=== PATIENT | female | born 1975 | race African-American/Black ===

== ENCOUNTER 2017-05-31 02:51 | Emergency (ER) | payer MEDICAID ==
[~2017-05-31] VITALS: Ht 170.2 cm; Wt 68.2 kg
[2017-05-31 02:56] VITALS: BP 140/84
== END 2017-05-31 03:49 | disposition home or self-care (01) ==
LOC: EMS 02:53
DX: G56.03 Carpal tunnel syndrome, bilateral upper limbs (principal); F17.210 Nicotine dependence, cigarettes, uncomplicated; Z88.0 Allergy status to penicillin
CPT/HCPCS: 99283

== ENCOUNTER 2017-09-18 22:25 | Emergency (ER) | payer MEDICAID, OTHER ==
[~2017-09-18] VITALS: Ht 167.6 cm; Wt 80.5 kg
[2017-09-18 23:02] LABS: APPEARANCE,URINE TURBID (CLEAR); BILIRUBIN,URINE NEGATIVE (NEGATIVE); GLUCOSE, URINE (UA) NEGATIVE (NEGATIVE); KETONES,URINE NEGATIVE (NEGATIVE); LEUKOCYTE ESTERASE ,URINE LARGE (NEGATIVE); NITRATE,URINE POSITIVE (NEGATIVE); OCCULT BLOOD,URINE LARGE (NEGATIVE); PROTEIN,URINE SEE CONFIRM (NEGATIVE); UROBILINOGEN,URINE 0.2 mg/dL (<=1.0)
[2017-09-18 23:12] LABS: SULFOSALICYLIC ACID,URINE 2+ (Negative); WBC,URINE >100 /HPF (0-5)
[2017-09-18 23:13] LABS: BACTERIA,URINE Many /HPF (None Seen); SQUAMOUS EPITHELIAL CELL,UR Moderate /LPF (None Seen)
[2017-09-18 23:31] VITALS: BP 121/84
[2017-09-18] MEDS ORDERED: PHENAZOPYRIDINE HCL 100 MG TABLET PO ONE (23:45)
[2017-09-18] MEDS ORDERED: CIPROFLOXACIN HCL 250 MG TABLET PO ONE (23:45)
== END 2017-09-19 00:01 | disposition home or self-care (01) ==
LOC: EMS 22:26
DX: N39.0 Urinary tract infection, site not specified (principal); F17.210 Nicotine dependence, cigarettes, uncomplicated
CPT/HCPCS: 87086; 99284

== ENCOUNTER 2019-09-04 12:02 | Emergency (ER) | payer MEDICAID, OTHER ==
[~2019-09-04] VITALS: Ht 167.6 cm; Wt 85.9 kg
[2019-09-04] MEDS ORDERED: LIDOCAINE 5% TRANSDERMAL PATCH TD ONE (13:15)
[2019-09-04] MEDS ORDERED: METHOCARBAMOL 500 MG TABLET PO ONE (13:15)
[2019-09-04] MEDS: KETOROLAC TROMETHAMINE 30 MG/ML VIAL IM ONE ×2 (13:46→13:56)
[2019-09-04 13:57] VITALS: BP 127/68
[2019-09-04] MEDS ORDERED: KETOROLAC TROMETHAMINE 10 MG TABLET PO ONE (14:00)
== END 2019-09-04 14:33 | disposition home or self-care (01) ==
LOC: EMS 12:04
DX: G89.29 Other chronic pain (principal); M54.5 Low back pain; R03.0 Elevated blood-pressure reading, without diagnosis of hypertension; F17.210 Nicotine dependence, cigarettes, uncomplicated; Z88.0 Allergy status to penicillin
CPT/HCPCS: 72100; 72220; J1885

== ENCOUNTER 2021-12-22 15:15 | Emergency (ER) | payer MEDICAID | END 2021-12-22 17:57 | disposition left against medical advice (07) | LOC: EMS 15:21 | DX: Z53.21 Procedure and treatment not carried out due to patient leaving prior to being seen by health care provider (principal) ==

== ENCOUNTER 2022-03-08 03:28 | Inpatient (IN) | payer MEDICAID ==
[~2022-03-08] VITALS: Ht 170.2 cm; Wt 80.5 kg
[2022-03-08] MEDS ORDERED: ACETAMINOPHEN 500 MG TABLET PO ONE (03:45)
[2022-03-08] MEDS ORDERED: ONDANSETRON HCL 4 MG/2 ML VIAL IVP ONE (03:45)
[2022-03-08] MEDS ORDERED: SODIUM CHLORIDE 0.9% 1,000 ML IV ONE (03:45)
[2022-03-08] MEDS ORDERED: KETOROLAC TROMETHAMINE 30 MG/ML VIAL IVP ONE (03:45)
[2022-03-08] MEDS ORDERED: FAMOTIDINE 10 MG/ML 2 ML VIAL IVP ONE (03:45)
[2022-03-08 04:07] LABS: BASOPHILS % (AUTO) 0.2 % (0.0-2.0); EOSINOPHILS % (AUTO) 0.7 % (1.0-6.0); HEMATOCRIT 38.7 % (36-46); HEMOGLOBIN 12.5 g/dL (12.0-16.0); LYMPHOCYTES # (AUTO) 1.2 K/uL (1.0-4.8); LYMPHOCYTES % (AUTO) 14.8 % (22.0-44.0); MEAN CORPUSCULAR HEMOGLOBIN 25.5 pg (26.0-34.0); MEAN CORPUSCULAR HGB CONC 32.3 G/dL (31.0-37.0); MEAN CORPUSCULAR VOLUME 79 fL (80-100); MONOCYTES # (AUTO) 0.4 K/uL (0.1-1.0); NEUTROPHILS # (AUTO) 6.5 K/uL (1.8-7.7); NEUTROPHILS % (AUTO) 79.3 % (40.0-70.0); PLATELET COUNT (AUTO) 289 K/uL (150-450); RED CELL DISTRIBUTION WIDTH 14.4 % (11.5-14.5)
[2022-03-08 04:16] LABS: ANION GAP 9 mmol/L (8-16); CARBON DIOXIDE 28 mmol/L (22-29); CHLORIDE 103 mmol/L (98-107); CREATININE 0.89 mg/dL (0.60-1.30); GLUCOSE,RANDOM 162 mg/dL (70-110); POTASSIUM 3.9 mmol/L (3.5-5.1); SODIUM SERUM 140 mmol/L (136-145); UREA NITROGEN, BLOOD 11 mg/dL (7-18)
[2022-03-08 04:19] LABS: GLOMERULAR FILTR. RATE CALC > 60 mL/min (>60)
[2022-03-08 04:22] LABS: ALANINE AMINOTRANSFERASE 28 U/L (12-78); ALBUMIN 3.9 g/dL (3.4-5.0); ALKALINE PHOSPHATASE 66 U/L (46-116); ASPARTATE AMINOTRANSFERASE 17 U/L (15-37); BILIRUBIN,TOTAL 0.3 mg/dL (0.1-1.0); LIPASE 76 U/L (73-393); TOTAL PROTEIN, SERUM 7.9 g/dL (6.4-8.2)
[2022-03-08] MEDS ORDERED: IOHEXOL 350 MG/ML 100 ML VIAL ONE (04:44)
[2022-03-08] MEDS ORDERED: SODIUM CHLORIDE 0.9% 100 ML ONE (04:44)
[2022-03-08] MEDS ORDERED: ONDA-104 PO (05:49)
[2022-03-08 05:57] LABS: APPEARANCE,URINE HAZY (CLEAR); BILIRUBIN,URINE NEGATIVE (NEGATIVE); GLUCOSE, URINE (UA) NEGATIVE (NEGATIVE); KETONES,URINE NEGATIVE (NEGATIVE); LEUKOCYTE ESTERASE ,URINE TRACE (NEGATIVE); NITRATE,URINE NEGATIVE (NEGATIVE); OCCULT BLOOD,URINE NEGATIVE (NEGATIVE); PROTEIN,URINE TRACE mg/dL (NEGATIVE); UROBILINOGEN,URINE <=1.0 mg/dL (<=1.0)
[2022-03-08 06:05] LABS: RBC,URINE None Seen /HPF (0-2)
[2022-03-08 06:06] LABS: AMORPHOUS SEDIMENT,UR Many /LPF (None Seen); BACTERIA,URINE None Seen /HPF (None Seen); SQUAMOUS EPITHELIAL CELL,UR None Seen /LPF (None Seen); WBC,URINE 0-2 /HPF (0-5)
[2022-03-08] MEDS: SODIUM CHLORIDE 0.9% 1,000 ML IV SCH ×2 (06:13→08:27)
[2022-03-08 07:53] LABS: COVID AG,FIA SOURCE NASAL SWAB
[2022-03-08] MEDS ORDERED: ONDANSETRON HCL 4 MG/2 ML VIAL IVP PRN (08:15)
[2022-03-08] MEDS ORDERED: ACETAMINOPHEN 325 MG TABLET PO PRN (08:15)
[2022-03-08] MEDS: PANTOPRAZOLE SODIUM 40 MG/VIAL IVP SCH (08:27)
[2022-03-08] MEDS ORDERED: MAGNESIUM HYDROXIDE SUSPENSION 30 ML UDCUP PO ONE (11:15)
[2022-03-08] MEDS: HEPARIN SODIUM,PORCINE 5,000 UNITS/ML VIAL SQ SCH (15:07)
[2022-03-08 16:05] LABS: AMPHET/METH SCREEN,URINE POSITIVE (NEGATIVE); BARBITURATE SCREEN, URINE NEGATIVE (NEGATIVE); BENZODIAZEPINES SCREEN,URINE NEGATIVE (NEGATIVE); CANNABINOID SCREEN,URINE NEGATIVE (NEGATIVE); COCAINE SCREEN,URINE NEGATIVE (NEGATIVE); METHADONE SCREEN, URINE NEGATIVE (NEGATIVE); OPIATE SCREEN,URINE NEGATIVE (NEGATIVE)
[2022-03-08 16:06] LABS: PHENCYCLIDINE SCREEN,URINE NEGATIVE (NEGATIVE)
[2022-03-08 17:30] VITALS: BP 103/77
[2022-03-08 21:05] VITALS: BP 100/51
[2022-03-09 04:25] VITALS: BP 102/70
[2022-03-09] MEDS: HEPARIN SODIUM,PORCINE 5,000 UNITS/ML VIAL SQ SCH ×2 (08:00)
[2022-03-09] MEDS: PANTOPRAZOLE SODIUM 40 MG/VIAL IVP SCH (09:23)
[2022-03-09 10:13] VITALS: BP 110/68
== END 2022-03-09 15:00 | disposition home or self-care (01) | DRG 247 ==
LOC: EMS 03:30 → 6S 14:25 → UNDOADMIN 15:32
PROVIDERS: ADMIT Internal Medicine; ATTEND Internal Medicine
DX: K56.600 Partial intestinal obstruction, unspecified as to cause (principal); F15.90 Other stimulant use, unspecified, uncomplicated; F17.210 Nicotine dependence, cigarettes, uncomplicated; Z20.822 Contact with and (suspected) exposure to COVID-19; Z88.0 Allergy status to penicillin; Z82.49 Family history of ischemic heart disease and other diseases of the circulatory system; Z98.51 Tubal ligation status; Z79.899 Other long term (current) drug therapy; Z71.51 Drug abuse counseling and surveillance of drug abuser
CPT/HCPCS: 74019; 74177; 80053; 81001; 83690; 84484; 85025; 93005; 99285; C9113; G0378; J1644; J1885; J2405; J3490; J7030; J7050; Q9967

== ENCOUNTER 2022-08-08 05:34 | Emergency (ER) | payer MEDICAID, OTHER ==
[~2022-08-08] VITALS: Ht 170.2 cm; Wt 77.3 kg
[~2022-08-08 05:34] MED LIST: ONDA-104 PO
[2022-08-08] MEDS ORDERED: ACET-2080 PO (06:29)
[2022-08-08] MEDS ORDERED: IBUP-1554 PO (06:29)
[2022-08-08] MEDS ORDERED: ACETAMINOPHEN/CODEINE 300-30 MG TABLET PO ONE (06:45)
[2022-08-08] MEDS ORDERED: IBUPROFEN 600 MG TABLET PO ONE (06:45)
[2022-08-08 06:47] VITALS: BP 114/78
== END 2022-08-08 06:54 | disposition home or self-care (01) ==
LOC: EMS 05:35
DX: S93.601A Unspecified sprain of right foot, initial encounter (principal); F17.210 Nicotine dependence, cigarettes, uncomplicated; F15.90 Other stimulant use, unspecified, uncomplicated; Z98.51 Tubal ligation status; W18.40XA Slipping, tripping and stumbling without falling, unspecified, initial encounter; Y93.89 Activity, other specified; Y92.89 Other specified places as the place of occurrence of the external cause; Y99.8 Other external cause status
CPT/HCPCS: 99283

== ENCOUNTER 2024-01-11 11:54 | Emergency (ER) | payer OTHER ==
[~2024-01-11] VITALS: Ht 170.2 cm; Wt 81.8 kg
[~2024-01-11 11:54] MED LIST changes: +ACET-2080 PO; +IBUP-1554 PO
[2024-01-11 11:58] VITALS: BP 115/65; PULSE 83; RESP 18; TEMP 98.5; O2SAT 100
== END 2024-01-11 14:37 | disposition left against medical advice (07) ==
LOC: EMS 11:54
DX: I10 Essential (primary) hypertension (principal); Z53.21 Procedure and treatment not carried out due to patient leaving prior to being seen by health care provider

== ENCOUNTER 2024-01-21 09:31 | Emergency (ER) | payer OTHER ==
[~2024-01-21] VITALS: Ht 170.2 cm; Wt 86.4 kg
[2024-01-21 09:42] VITALS: TEMP 99.1
[2024-01-21] MEDS ORDERED: IBUP-1554 PO (10:13)
[2024-01-21] MEDS ORDERED: CLIN300C58 PO (10:13)
[2024-01-21] MEDS ORDERED: HYDR-4062 PO (10:13)
[2024-01-21 10:45] VITALS: BP 130/74; PULSE 92; RESP 16; O2SAT 99
== END 2024-01-21 10:45 | disposition home or self-care (01) ==
LOC: EMS 09:31
DX: K02.9 Dental caries, unspecified (principal); F17.210 Nicotine dependence, cigarettes, uncomplicated; F15.90 Other stimulant use, unspecified, uncomplicated; Z98.51 Tubal ligation status; Z88.0 Allergy status to penicillin
CPT/HCPCS: 99283; Z7502

== ENCOUNTER 2024-03-27 08:54 | Emergency (ER) | payer OTHER ==
[~2024-03-27] VITALS: Ht 170.2 cm; Wt 81.0 kg
[~2024-03-27 08:54] MED LIST changes: -ACET-2080 PO; +CLIN300C58 PO; -ONDA-104 PO
[2024-03-27 09:05] VITALS: BP 140/92; PULSE 95; RESP 20; TEMP 99.3; O2SAT 99
[2024-03-27] MEDS ORDERED: ACET-66 PO (09:48)
[2024-03-27] MEDS ORDERED: GUAIFDM PO (09:48)
[2024-03-27] MEDS ORDERED: OSEL75CA45 PO (09:50)
[2024-03-27] MEDS: IBUPROFEN 600 MG TABLET PO ONE (10:44)
[2024-03-27] MEDS: GuaiFENesin/D-METHORPHAN [SUGAR-FREE] 200-20MG/10 ML SYRUP UDCUP PO ONE (10:44)
[2024-03-27] MEDS: ACETAMINOPHEN 500 MG TABLET PO ONE (10:44)
== END 2024-03-27 11:34 | disposition home or self-care (01) ==
LOC: EMS 08:54
DX: J06.9 Acute upper respiratory infection, unspecified (principal); I10 Essential (primary) hypertension; F17.210 Nicotine dependence, cigarettes, uncomplicated; Z88.0 Allergy status to penicillin
CPT/HCPCS: 99284; Z7502; Z7610

== ENCOUNTER 2024-11-08 12:11 | Emergency (ER) | payer OTHER ==
[~2024-11-08] VITALS: Ht 170.2 cm; Wt 83.6 kg
[~2024-11-08 12:11] MED LIST changes: +ACET-66 PO; +GUAIFDM PO; +OSEL75CA45 PO
[2024-11-08 12:32] VITALS: TEMP 98.4
[2024-11-08] MEDS ORDERED: [UNRECOGNIZED DRUG - CODE] TP (12:37)
[2024-11-08] MEDS ORDERED: CLOT15CR29 TP (12:37)
[2024-11-08 14:02] LABS: PLATELET COUNT (AUTO) 258 K/uL (150-450); RED BLOOD CELL COUNT(AUTO) 4.35 MIL/uL (4.00-5.20); RED CELL DISTRIBUTION WIDTH 15.4 % (11.5-14.5); WHITE BLOOD COUNT (AUTO) 6.4 K/uL (4.5-11.0)
[2024-11-08 14:11] LABS: CALCIUM, TOTAL 8.4 mg/dL (8.8-10.5); CREATININE 0.99 mg/dL (0.60-1.30); GLOMERULAR FILTR. RATE CALC > 60 mL/min (>60); GLUCOSE,RANDOM 108 mg/dL (70-110); SODIUM SERUM 139 mmol/L (136-145); UREA NITROGEN, BLOOD 10 mg/dL (7-18)
[2024-11-08 15:19] VITALS: BP 140/86; PULSE 91; RESP 18; O2SAT 100
== END 2024-11-08 15:20 | disposition home or self-care (01) ==
LOC: EMS 12:11
DX: L30.9 Dermatitis, unspecified (principal); I10 Essential (primary) hypertension; M19.90 Unspecified osteoarthritis, unspecified site; M79.671 Pain in right foot; M79.672 Pain in left foot; F17.210 Nicotine dependence, cigarettes, uncomplicated; F15.90 Other stimulant use, unspecified, uncomplicated; Z98.51 Tubal ligation status; Z88.0 Allergy status to penicillin; Z79.899 Other long term (current) drug therapy
CPT/HCPCS: 80048; 85025; 99283